=== PATIENT | female | born 1985 | race Caucasian/White ===

== ENCOUNTER 2018-07-09 08:20 | Emergency (ER) | payer OTHER ==
[~2018-07-09] VITALS: Ht 170.2 cm; Wt 78.0 kg
[~2018-07-09 08:20] MED LIST: ANTIDEPRESSANT PO; DOXY100C9 PO; FOLI1TAB19 PO; IBUP-974 PO; LAM25 PO; [UNRECOGNIZED DRUG - CODE] PO
[2018-07-09 08:47] VITALS: BP 133/82
--- NOTE | 2018-07-09 08:52 | NUR ---
Patient ambulated to bed 2 at this time.
--- NOTE | 2018-07-09 09:01 | NUR ---
BIB SELF WITH C/O 4TH DIGIT OF RIGHT HAND PAIN S/P SMASHING IT IN THE CAR DOOR ON THANKSGIVING. NAIL ON RIGHT IS LIFTING. PT STS SHE TRIED REMOVING NAIL ON HER OWN AND CAN NOT. HX--SZ RX--LAMICTAL
--- NOTE | 2018-07-09 10:12 | NUR ---
Patient being evaluated by physician at bedside.
[2018-07-09 10:28] VITALS: BP 121/75
--- NOTE | 2018-07-09 10:28 | NUR ---
Patient discharged with v/s stable. Written and verbal after care instructions given and explained. Patient verbalized understanding. Ambulatory with steady gait. All questions addressed prior to discharge. Advised to follow up with PMD.
== END 2018-07-09 10:28 | disposition home or self-care (01) ==
LOC: MED 08:20
DX: S61.305A Unspecified open wound of left ring finger with damage to nail, initial encounter (principal); G40.909 Epilepsy, unspecified, not intractable, without status epilepticus; Z79.2 Long term (current) use of antibiotics; Z79.1 Long term (current) use of non-steroidal anti-inflammatories (NSAID); Z79.899 Other long term (current) drug therapy; W23.0XXA Caught, crushed, jammed, or pinched between moving objects, initial encounter; Y93.89 Activity, other specified; Y92.89 Other specified places as the place of occurrence of the external cause; Y99.8 Other external cause status
CPT/HCPCS: 99283

== ENCOUNTER 2020-08-11 11:35 | Emergency (ER) | payer OTHER ==
[~2020-08-11] VITALS: Ht 170.2 cm; Wt 86.2 kg
[2020-08-11 11:41] VITALS: BP 138/85
--- NOTE | 2020-08-11 11:52 | NUR ---
BIBS from home with c/o FALL ONTO TABLE 08/05/20, taking tylenol/motrin for pain until reinjury yesterday. Now pain is intolerable, c/o LEFT SIDE LOWER BACK 10/10 SHARP PAIN. TOOK TYLENOL 500MG FOR PAIN this AM, NO RELIEF. PAIN DOES NOT RADIATE. NO N&V. PMH siezure epilepsy, NKDA, A, A, O x 4, cooperative. HOB elevated, in no acute distress, VVS x HR elevated, sinus rhythm/sinus tachycardia Moving all extremities well, gait steady. No obvious bruising noted, patient denies. Will continue to monitor and assess
--- NOTE | 2020-08-11 11:55 | NUR ---
Patient asked to dress in hospital gown for physicain examination/evaluation
[2020-08-11] MEDS ORDERED: HYDROcodone/APAP 5/325 MG 1 TAB TAB ONE (12:15)
--- NOTE | 2020-08-11 12:18 | NUR ---
[place] given PO for lower left back c/o pain 03/27. Patient advised to stay in bed and call for assistance, side rails up. Will continue to monitor and assess
[2020-08-11] MEDS ORDERED: HYDROcodone/APAP 5/325 MG 1 TAB TAB PO ONE (12:30)
[2020-08-11 13:05] VITALS: BP 136/84
== END 2020-08-11 13:06 | disposition home or self-care (01) ==
LOC: MED 11:35
DX: M54.5 Low back pain (principal); Z79.899 Other long term (current) drug therapy; W18.39XA Other fall on same level, initial encounter; Y93.89 Activity, other specified; Y92.89 Other specified places as the place of occurrence of the external cause; Y99.8 Other external cause status
CPT/HCPCS: 99283

== ENCOUNTER 2022-02-16 21:41 | Emergency (ER) | payer OTHER ==
[~2022-02-16] VITALS: Ht 170.2 cm; Wt 86.6 kg
[~2022-02-16 21:41] MED LIST changes: +DOXY-690 PO; -DOXY100C9 PO
[2022-02-16 22:02] VITALS: BP 139/89
[2022-02-17] MEDS ORDERED: LORazepam 1 MG TAB PO ONE (00:40)
[2022-02-17 00:53] LABS: BASOPHILS % (AUTO) 0.3 % (0.0-2.0); EOSINOPHILS # (AUTO) 0.1 K/uL (0-0.4); EOSINOPHILS % (AUTO) 1.3 % (0.0-4.0); HEMATOCRIT 40.4 % (36-48); HEMOGLOBIN 13.9 g/dL (12.0-16.0); LYMPHOCYTES # (AUTO) 1.8 K/uL (2.5-16.5); LYMPHOCYTES % (AUTO) 24.8 % (20.5-51.1); MEAN CORPUSCULAR HEMOGLOBIN 31 pg (27-31); MEAN CORPUSCULAR HGB CONC 34 g/dL (33-37); MEAN CORPUSCULAR VOLUME 88.8 fL (80-94); MONOCYTES # (AUTO) 0.6 K/uL (0.8-1.0); MONOCYTES % (AUTO) 8.7 % (1.7-9.3); NEUTROPHILS # (AUTO) 4.7 K/uL (1.8-7.7); NEUTROPHILS % (AUTO) 64.9 % (42.2-75.2); PLATELET COUNT (AUTO) 252 K/uL (140-450); RED BLOOD CELL COUNT(AUTO) 4.55 MIL/uL (4.20-5.40); RED CELL DISTRIBUTION WIDTH 13.1 % (11.6-13.7); WHITE BLOOD COUNT (AUTO) 7.2 K/uL (4.8-10.8)
[2022-02-17 01:11] LABS: ALBUMIN 3.8 g/dL (3.4-5.0); ASPARTATE AMINOTRANSFERASE 20 U/L (15-37); CARBON DIOXIDE 26.9 mmol/L (21-32); CHLORIDE 106 mmol/L (98-107); CREATININE 0.8 mg/dL (0.6-1.3); GFR ARICAN-AMERICAN 104 mL/min (>90); GLUCOSE 93 mg/dL (74-106); POTASSIUM 3.9 mmol/L (3.5-5.1); SODIUM SERUM 141 mmol/L (136-145); TOTAL BILIRUBIN 0.5 mg/dL (0.0-1.0); UREA NITROGEN, BLOOD 10 mg/dL (7-18)
[2022-02-17 01:44] LABS: SALICYLATE < 2.8 mg/dL (2.8-20.0)
[2022-02-17 01:54] LABS: BARBITURATE, URINE NEGATIVE ng/ml (NEG <=200); BENZODIAZEPINE, URINE NEGATIVE ng/mL (NEG <=200); CANNABINOID, URINE NEGATIVE ng/mL (NEG <=50); COCAINE, URINE NEGATIVE ng/mL (NEG <=300); OPIATE, URINE NEGATIVE ng/mL (NEG <=2000); PHENCYCLIDINE SCREEN,URINE NEGATIVE ng/mL (NEG <=25)
[2022-02-17 01:56] LABS: ACETAMINOPHEN < 0.5 ug/ml (10-30)
[2022-02-17 02:22] VITALS: BP 133/89
== END 2022-02-17 02:22 | disposition home or self-care (01) ==
LOC: MED 21:41
DX: F41.9 Anxiety disorder, unspecified (principal); Z79.899 Other long term (current) drug therapy
CPT/HCPCS: 36415; 80053; 80305; 81025; 85025; 99283; G0480; G0482

== ENCOUNTER 2023-03-29 23:35 | Emergency (ER) | payer OTHER ==
[~2023-03-29] VITALS: Ht 170.2 cm; Wt 90.7 kg
[2023-03-29 23:40] VITALS: BP 126/73; PULSE 108; RESP 16; TEMP 97.3; O2SAT 97
[2023-03-29 23:59] VITALS: O2SAT 97
[2023-03-30 00:24] LABS: BASOPHILS % (AUTO) 0.4 % (0.0-2.0); EOSINOPHILS # (AUTO) 0.1 K/uL (0-0.4); EOSINOPHILS % (AUTO) 1.3 % (0.0-4.0); HEMATOCRIT 39.7 % (36-48); HEMOGLOBIN 13.5 g/dL (12.0-16.0); LYMPHOCYTES # (AUTO) 1.3 K/uL (2.5-16.5); MEAN CORPUSCULAR HEMOGLOBIN 31 pg (27-31); MEAN CORPUSCULAR HGB CONC 34 g/dL (33-37); MEAN CORPUSCULAR VOLUME 89.7 fL (80-94); MONOCYTES # (AUTO) 0.8 K/uL (0.8-1.0); MONOCYTES % (AUTO) 10.3 % (1.7-9.3); NEUTROPHILS # (AUTO) 5.4 K/uL (1.8-7.7); PLATELET COUNT (AUTO) 235 K/uL (140-450); RED BLOOD CELL COUNT(AUTO) 4.42 MIL/uL (4.20-5.40); RED CELL DISTRIBUTION WIDTH 13.3 % (11.6-13.7); WHITE BLOOD COUNT (AUTO) 7.6 K/uL (4.8-10.8)
[2023-03-30 00:38] LABS: ANION GAP 11.3 (8-16); CALCIUM 8.5 mg/dL (8.5-10.1); CARBON DIOXIDE 28.4 mmol/L (21-32); CREATININE 0.8 mg/dL (0.6-1.3); POTASSIUM 3.7 mmol/L (3.5-5.1)
[2023-03-30 00:39] LABS: ALBUMIN 3.6 g/dL (3.4-5.0); TOTAL BILIRUBIN 0.4 mg/dL (0.0-1.0); TOTAL PROTEIN, SERUM 7.3 g/dL (6.4-8.2)
[2023-03-30 02:08] VITALS: BP 118/76; PULSE 82; RESP 16; TEMP 97.3; O2SAT 97
[2023-03-31 08:09] LABS: HIV 1/0/2 ABS, QUAL Non Reactive (Non Reactive)
[2023-04-01 10:15] LABS: HIV 1/0/2 CONFIRM NON REACTIVE
== END 2023-03-30 02:08 | disposition home or self-care (01) ==
LOC: MED 23:35
DX: S80.11XA Contusion of right lower leg, initial encounter (principal); X58.XXXA Exposure to other specified factors, initial encounter; Y93.89 Activity, other specified; Y92.89 Other specified places as the place of occurrence of the external cause; Y99.8 Other external cause status
CPT/HCPCS: 36415; 80053; 85025; 86702; 86703; 93971; 99284; Q0092

== ENCOUNTER 2023-04-12 18:51 | Emergency (ER) | payer OTHER ==
[~2023-04-12] VITALS: Ht 170.2 cm; Wt 90.7 kg
[2023-04-12 18:58] VITALS: BP 134/95; PULSE 122; RESP 16; TEMP 98.9; O2SAT 99
[2023-04-12 19:19] LABS: BASOPHILS % (AUTO) 0.3 % (0.0-2.0); EOSINOPHILS % (AUTO) 0.6 % (0.0-4.0); HEMATOCRIT 41.2 % (36-48); HEMOGLOBIN 14.2 g/dL (12.0-16.0); LYMPHOCYTES % (AUTO) 14.6 % (20.5-51.1); MEAN CORPUSCULAR HEMOGLOBIN 31 pg (27-31); MEAN CORPUSCULAR HGB CONC 35 g/dL (33-37); MEAN CORPUSCULAR VOLUME 88.9 fL (80-94); MONOCYTES # (AUTO) 0.6 K/uL (0.8-1.0); NEUTROPHILS # (AUTO) 5.5 K/uL (1.8-7.7); NEUTROPHILS % (AUTO) 76.5 % (42.2-75.2); PLATELET COUNT (AUTO) 271 K/uL (140-450); RED BLOOD CELL COUNT(AUTO) 4.63 MIL/uL (4.20-5.40); WHITE BLOOD COUNT (AUTO) 7.1 K/uL (4.8-10.8)
[2023-04-12 19:32] LABS: ALANINE AMINOTRANSFERASE 69 U/L (12-78); ALCOHOL, BLOOD < 3 mg/dL (<10); ALKALINE PHOSPHATASE 107 U/L (50-136); ANION GAP 12.3 (8-16); ASPARTATE AMINOTRANSFERASE 25 U/L (15-37); CARBON DIOXIDE 27.6 mmol/L (21-32); CHLORIDE 104 mmol/L (98-107); CREATININE 0.9 mg/dL (0.6-1.3); GFR ARICAN-AMERICAN 91 mL/min (>90); GFR NON ARICAN-AMERICAN 75 mL/min (>90); GLUCOSE 122 mg/dL (74-106); POTASSIUM 3.9 mmol/L (3.5-5.1); SODIUM SERUM 140 mmol/L (136-145); TOTAL BILIRUBIN 0.6 mg/dL (0.0-1.0); TOTAL PROTEIN, SERUM 7.9 g/dL (6.4-8.2); UREA NITROGEN, BLOOD 10 mg/dL (7-18)
[2023-04-12 19:34] LABS: SALICYLATE < 2.8 mg/dL (2.8-20.0)
[2023-04-12 19:35] LABS: ACETAMINOPHEN < 0.5 ug/ml (10-30)
[2023-04-12 19:59] LABS: BILIRUBIN,URINE 1+ (NEGATIVE); BLOOD, URINE 3+ (NEGATIVE); COLOR,URINE YELLOW (YELLOW); LEUKOCYTE ESTERASE ,URINE TRACE (NEGATIVE); NITRITE, URINE NEGATIVE (NEGATIVE); PH,URINE 5.5 (5.0-9.0); PROTEIN,URINE 1+ (NEGATIVE); UGLUCOSE NEGATIVE (NEGATIVE); UROBILINOGEN,URINE 0.2 EU/dL (0.2 - 1)
[2023-04-12] MEDS ORDERED: KETOROLAC 60 MG/2 ML VIAL IM ONE (20:05)
[2023-04-12 20:09] LABS: APPEARANCE,URINE HAZY (CLEAR)
[2023-04-12 20:16] LABS: BACTERIA,URINE 2+ /HPF (None Seen); RBC,URINE 0-5 /HPF (0-5); SQUAMOUS EPITHELIAL CELL,UR 20-50 /LPF (0-3 (FEW))
[2023-04-12] MEDS ORDERED: OLANZapine 10 MG VIAL IM ONE (22:20)
[2023-04-12 23:12] VITALS: O2SAT 99
[2023-04-13 01:17] VITALS: O2SAT 99
[2023-04-13 03:47] VITALS: O2SAT 99
[2023-04-13 07:02] VITALS: O2SAT 99
[2023-04-13 22:06] VITALS: O2SAT 97
[2023-04-13] MEDS ORDERED: OLANZapine 10 MG VIAL IM ONE (22:28)
[2023-04-13] MEDS ORDERED: WATER STERILE 10 ML MC ONE (22:30)
[2023-04-14 01:30] VITALS: O2SAT 97
[2023-04-14 05:42] VITALS: O2SAT 97
[2023-04-14 07:32] VITALS: O2SAT 97
[2023-04-14 08:12] VITALS: BP 136/86; PULSE 86; RESP 18; TEMP 98.2; O2SAT 74
[2023-04-14 10:26] LABS: AMPHETAMINE, URINE NEGATIVE ng/ml (NEG <=1000); BARBITURATE, URINE NEGATIVE ng/ml (NEG <=200); BENZODIAZEPINE, URINE NEGATIVE ng/mL (NEG <=200); CANNABINOID, URINE NEGATIVE ng/mL (NEG <=50); COCAINE, URINE NEGATIVE ng/mL (NEG <=300); OPIATE, URINE NEGATIVE ng/mL (NEG <=2000); PHENCYCLIDINE SCREEN,URINE NEGATIVE ng/mL (NEG <=25)
== END 2023-04-14 08:12 ==
LOC: MED 18:51
DX: R45.1 Restlessness and agitation (principal); Z20.822 Contact with and (suspected) exposure to COVID-19; Z86.69 Personal history of other diseases of the nervous system and sense organs; Z98.890 Other specified postprocedural states; Z79.899 Other long term (current) drug therapy; Z79.1 Long term (current) use of non-steroidal anti-inflammatories (NSAID); Z79.2 Long term (current) use of antibiotics
CPT/HCPCS: 36415; 80053; 80305; 81001; 85025; 87086; 87426; 87635; 96372; 99285; C9803; G0480; G0482; J1885; J3490